=== PATIENT | female | born 1995 | race Two or more races ===

== ENCOUNTER 2017-09-20 18:21 | Emergency (ER) | payer SELFPAY, MEDICAID, OTHER | END 2017-09-20 19:25 | disposition left against medical advice (07) | LOC: ER 18:21 | DX: R10.9 Unspecified abdominal pain (principal); Z53.21 Procedure and treatment not carried out due to patient leaving prior to being seen by health care provider ==

== ENCOUNTER 2021-01-04 19:19 | Inpatient (IN) | payer SELFPAY ==
[~2021-01-04] VITALS: Ht 162.6 cm; Wt 56.2 kg
--- NOTE | 2021-01-04 19:54 | PHYS DOC ---
Past Medical History Past Medical History: STD Past Surgical History: No Surgical History Smoking Status: Light Tobacco Smoker Alcohol Use: Rarely Drug Use: Marijuana General Adult EDM: Chief Complaint: ABDOMINAL PAIN HPI: HPI: 25 yo F PMH ovarian cysts and anxiety, presents to the ED with her "step uncle," (patient consents to his/her/their knowledge and involvement in pts' medical care), with complaints of lower "pelvic" pain described as cramping that radiates to her upper abdomen. Reports she has had this type of pain for the past 6 to 7 years. Is unsure of her last menstrual period and is concerned she may be . Reports significant stress due to the recent loss of her mother to endometrial cancer. Per emr review, pt with h/o chlamydia. Pt later reported after test resulted positive, she's , h/o 2 miscarriages, no abortions. States she is not sexually active with her "uncle" and wishes him not to know she's . States she's been having a fever and back pain today. All sexual partners have been consensual. Review of Systems: Review of Systems: Constitutional: Denies fatigue or lack of taste/smell Eyes: Denies change in visual acuity. [] HENT: Denies nasal congestion or sore throat. [] Respiratory: Denies cough or shortness of breath. [] Cardiovascular: Denies chest pain or edema. [] GI: Denies nausea, vomiting, bloody stools or diarrhea. [] : Denies vaginal bleeding or hematuria Musculoskeletal: Denies midline back pain or joint pain. [] Integument: Denies rash or diaphoresis Neurologic: Denies headache, focal weakness or sensory changes. [] Endocrine: Denies polyuria or polydipsia. [] Lymphatic: Denies swollen glands. [] Psychiatric: Denies depression or anxiety. [] Heart Score: C/O Chest Pain: No Risk Factors: Risk Factors: DM, Current or recent (<one month) smoker, HTN, HLP, family history of CAD, obesity. Risk Scores: Score 0 - 3: 2.5% MACE over next 6 weeks - Discharge Home Score 4 - 6: 20.3% MACE over next 6 weeks - Admit for Clinical Observation Score 7 - 10: 72.7% MACE over next 6 weeks - Early Invasive Strategies Allergies: Allergies: Allergies Coded Allergies Type Severity Reaction Last Updated Verified No Known Drug Allergies 05/13/15 No Physical Exam: PE: Constitutional: Well developed, well nourished, no acute distress, non-toxic appearance. HENT: Normocephalic, atraumatic, Eyes: EOMI, conjunctiva normal, no discharge. Neck: Normal range of motion, supple, Cardiovascular: S1/2 present, tachycardic Lungs & Thorax: Speaking in full sentences, bilateral equal chest rise, no tachypnea or increased work of breathing Abdomen: soft, reports llq tenderness, no rigidity Skin: Warm, dry, no erythema, no rash. [] Back: no midline pain, reports bilateral flank pain Extremities: No tenderness, no cyanosis, no lower extremity edema Neurologic: Alert and oriented X 3, normal motor function, normal sensory function, no focal deficits noted. [] Psychologic: Affect normal, judgement normal, mood normal. [] Pelvic: Chaperoned by RN, external genitalia normal, no vaginal bleeding, nonmalodorous copious thick white discharge, cervical os closed, no cervical erythema, diffuse tenderness with palpation, no chandelier sign EKG: EKG: [] Radiology/Procedures: Radiology/Procedures: IMAGING REPORT Signed PATIENT: RAMAN CASTILLO ACCOUNT: [id number] : 1995 LOCATION: ER AGE: 25 SEX: F EXAM STATUS: REG ER ORD. PHYSICIAN: KAMILLA VO DO REASON: pelvic pain, +preg PROCEDURE: OB LIMITED EXAM: US OB Limited CLINICAL HISTORY: Reason: pelvic pain, +preg / Spl. Instructions: / History: . COMPARISON: None available. TECHNIQUE: Limited transabdominal ultrasound of the uterus was performed. FINDINGS: Within the uterus there is a single live intrauterine gestation with heart rate measured at 180 bpm. Fetus is in cephalic positioning. measurements as follows: BPD: 5.2 cm corresponding to 22 weeks 6 days Head circumference: 20.7 cm corresponding to 22 weeks 6 days Abdominal circumference: 17.3 cm corresponding to 22 weeks 2 days Femur length: 3.4 cm corresponding to 20 weeks 4 days Visualized structures are unremarkable. Placenta is anterior and appears normal. Cervix is not well visualized. Ovaries are not seen secondary to overlying gravid uterus. IMPRESSION: 1. Single live intrauterine gestation measuring 22 weeks 1 day by ultrasound, discordant with LMP. 2. Dedicated survey is recommended in the nonemergent setting. Electronically signed by: Jeannette Alfred MD (01/04/2021 9:44 PM) [facility] DICTATED and SIGNED BY: JEANNETTE ALFRED MD DATE: 01/04/21 [id number] 0 Course & Med Decision Making: Course & Med Decision Making Pertinent Labs and Imaging studies reviewed. (See chart for details) Concern for sepsis secondary to pyelonephritis with yeast infection and bacterial vaginosis. Normal IUP with no hypertension. Will admit for further medical management. Patient stable at time of admission agrees with this plan. I have spoken with the patient and/or caregivers. I have explained the patient's condition, diagnosis and treatment plan based on the information available to me at this time. I have answered the patient's and/or caregivers questions and answered any concerns. The patient and/or caregivers have as good an understanding of the patient's diagnosis, condition and treatment plan as c an be expected at this point. The patient has been stabilized within the capability of the emergency department. The patient will be transported for further care and management or will be moved to an observation or inpatient service. I have communicated with the staff or medical practitioner taking over this patient's care. Abraham Disclaimer: Abraham Disclaimer: This electronic medical record was generated, in whole or in part, using a voice recognition dictation system. Departure Departure Impression: Primary Impression: Sepsis Additional Impressions: Pyelonephritis Intrauterine Yeast infection Bacterial vaginosis Disposition: ADMITTED INPATIENT Admitting Physician: NADIRA (Dr. Horner) Condition: STABLE Referrals: UNKNOWN PCP NAME (PCP) KAMILLA VO DO Jan 04, 2021 19:54
[2021-01-04] MEDS ORDERED: IV NORMAL SALINE 1000ML BAG 1,000 ML IV SCH (20:00)
[2021-01-04 20:11] LABS: BASO % 0 % (0-3); EOS % 0 % (0-3); HEMATOCRIT 36.6 % (36.0-47.0); LYMPH # 0.6 x10^3/uL (1.0-4.8); LYMPH % 2 % (24-48); MEAN CORPUSCULAR HEMOGLOBIN 32 pg (25-35); MEAN CORPUSCULAR HGB CONC 36 g/dL (31-37); MEAN CORPUSCULAR VOLUME 90 fL (79-100); MONO # 1.1 x10^3/uL (0.0-1.1); MONO % 5 % (0-9); NEUT # 22.3 x10^3/uL (1.8-7.7); NEUT % 93 % (31-73); PLATELET COUNT 204 x10^3/uL (140-400); RED BLOOD COUNT 4.06 x10^6/uL (3.50-5.40); RED CELL DISTRIBUTION WIDTH 13.1 % (11.5-14.5)
[2021-01-04 20:14] LABS: BILIRUBIN,URINE NEGATIVE (NEG); CLARITY,URINE CLOUDY; COLOR,URINE YELLOW; NITRITE,URINE POSITIVE (NEG); PH,URINE 6.5 (<5.0-8.0); PROTEIN,URINE 100 mg/dL (NEG-TRACE); UROBILINOGEN,URINE 0.2 mg/dL (0.2 mg/dL)
[2021-01-04] MEDS ORDERED: ALPRAZolam 0.25 MG TABLET PO ONE (20:15)
[2021-01-04 20:21] LABS: BACTERIA,URINE MANY /HPF (0-FEW); WBC,URINE 20-40 /HPF (0-4)
[2021-01-04 20:23] LABS: BARBITURATES NEG (NEG); BENZODIAZEPINES POS (NEG); CANNABINOIDS POS (NEG); COCAINE NEG (NEG); METHADONE NEG (NEG); OPIATES NEG (NEG); PHENCYCLIDINE NEG (NEG)
[2021-01-04 20:27] LABS: AMPHETAMINE/METHAMPHETAMINE POS (NEG)
[2021-01-04 20:34] LABS: % BANDS 14 % (0-9); % LYMPHS 2 % (24-48); % MONOS 3 % (0-10); % SEGS 81 % (35-66); PLT ESTIMATE ADEQUATE (ADEQUATE)
[2021-01-04 20:35] LABS: CALCIUM 8.1 mg/dL (8.5-10.1); CREATININE 0.6 mg/dL (0.6-1.0); GFR 122.8; POTASSIUM 3.9 mmol/L (3.5-5.1)
[2021-01-04 20:43] LABS: ALBUMIN 2.5 g/dL (3.4-5.0); ALBUMIN/GLOBULIN RATIO 0.6 (1.0-1.7); TOTAL BILIRUBIN 0.7 mg/dL (0.2-1.0); TOTAL PROTEIN 6.9 g/dL (6.4-8.2)
--- NOTE | 2021-01-04 21:46 | RAD ---
EXAM: US OB Limited CLINICAL HISTORY: Reason: pelvic pain, +preg / Spl. Instructions: / History: . COMPARISON: None available. TECHNIQUE: Limited transabdominal ultrasound of the uterus was performed. FINDINGS: Within the uterus there is a single live intrauterine gestation with heart rate measured at 180 bpm. Fetus is in cephalic positioning. measurements as follows: BPD: 5.2 cm corresponding to 22 weeks 6 days Head circumference: 20.7 cm corresponding to 22 weeks 6 days Abdominal circumference: 17.3 cm corresponding to 22 weeks 2 days Femur length: 3.4 cm corresponding to 20 weeks 4 days Visualized structures are unremarkable. Placenta is anterior and appears normal. Cervix is not well visualized. Ovaries are not seen secondary to overlying gravid uterus. IMPRESSION: 1. Single live intrauterine gestation measuring 22 weeks 1 day by ultrasound, discordant with LMP. 2. Dedicated survey is recommended in the nonemergent setting. Electronically signed by: Jeannette Dee MD (01/04/2021 9:44 PM) [facility]TW[facility]
[2021-01-04] MEDS ORDERED: FLUCONAZOLE 100 MG TABLET. PO ONE (22:00)
[2021-01-04] MEDS ORDERED: cefTRIAXone IV Push 1 GM VIAL. IVP ONE (22:00)
[2021-01-04] MEDS ORDERED: IV NORMAL SALINE 1000ML BAG 1,000 ML IV ONE (22:00)
[2021-01-05] VITALS (7 sets, daily range): BP systolic 100–110; BP diastolic 45–64
--- NOTE | 2021-01-05 00:55 | NUR ---
The patient, RAMAN CASTILLO, 25 y/o, F admitted by RONNA VO MD, was given written information regarding hospital policies, unit procedures and contact persons. Valuables were checked and left with her.
[2021-01-05] MEDS ORDERED: ONDANSETRON PF 4 MG/2 ML VIAL. IVP PRN (02:00)
[2021-01-05] MEDS ORDERED: ACETAMINOPHEN 650 MG/20.3 ML SOLUTION. PEG PRN (02:00)
[2021-01-05] MEDS: ACETAMINOPHEN 325 MG TABLET. PO PRN ×2 (02:21→11:15)
--- NOTE | 2021-01-05 06:07 | NUR ---
Dr. Horner ordered COVID PCR due to elevated temp. of 101.5 orally, Patient refused to get swab stated, "I do not have COVID! I will leave this hospital before being swab! I watched my mom go thru that and I will not be swab! I'm sick with a high fever because of the !" This nurse explained to her that the fever could be related to the UTI, Pyelonephritis or COVID and Dr. Horner need to r/o COVID. Patient continues to refused, this nurse paged and spoke with Dr. Horner regarding Patient refusal, Dr. Horner will come this morning to educate her regarding her plan of care.
--- NOTE | 2021-01-05 07:32 | NUR ---
heart tones per [place] Doppler at 145-155.
[2021-01-05] MEDS: DOCUSATE SODIUM 100 MG CAPSULE. PO SCH ×2 (08:50→21:17)
[2021-01-05] MEDS: PRENATAL MULTIVITAMIN TABLET. PO SCH (08:50)
[2021-01-05] MEDS: PYRIDOXINE 50 MG TABLET. PO SCH (08:50)
--- NOTE | 2021-01-05 09:55 | PDOC2 ---
CONSULT Date of Consult Date of Consult DATE: 01/05/21 TIME: 09:54 Reason for Consult Reason for Consult: pyelo, History of Present Illness Reason for Visit: EDC: 05/09/21 LMP: couple of months ago 25y @ 22.2 by 22wk u/s admitted for pyelonephritis. The pt states 2 nights ago when she was with friends. She felt like she was about to blackout. She also states that she was experiencing hearing loss. She felt pain throughout her entire body. She was taking Xanax for the pain. She is unsure if she had any fevers, but was having chills over the last 2 days. She reports having darker urine, but denies any dysuria or frequency. In the ER the pt had labs drawn revealing a WBC of 24.0. Her UA also revealed large TRACEE and pos NIT. In the ER, an u/s was performed after her test returned pos. The u/s revealed a gestation of 22.1 wks. She was unaware she was and states that she did not think it was possible. She was told that she would have difficulty achieving , because she had a short tube in her body putting her at increased risk of UTIs. She does not have a PCP or a psychiatrist. She is unsure if she wants to have a baby with all that is going on in the world. Her mother in August with endometrial CA. PMH: Depression/Anxiety, Bipolar, ovarian cysts PSH: teeth Meds: none All: NKDA OBHx: SAB x 2 Inside Phone Sales: LMP a couple of wks ago Menarche 14yo, regular cycles SH: 1 PPD, no EtOH FH: CAD, CA Current Problem List Problem List Problems Medical Problems: (1) Bacterial vaginosis Status: Acute (2) Intrauterine Status: Acute (3) Pyelonephritis Status: Acute (4) Sepsis Status: Acute (5) Yeast infection Status: Acute Current Medications Current Medications Current Medications Sodium Chloride 1,000 ml @ 1,000 mls/hr Q1H IV Last administered on 01/04/21at 21:46; Start 01/04/21 at 20:00; Stop 01/04/21 at 20:59; Status DC Alprazolam (Xanax) 0.25 mg 1X ONCE PO Last administered on 01/04/21at 21:18; Start 01/04/21 at 20:15; Stop 01/04/21 at 20:16; Status DC Fluconazole (Diflucan) 200 mg 1X ONCE PO Last administered on 01/04/21at 21:47; Start 01/04/21 at 22:00; Stop 01/04/21 at 22:01; Status DC Ceftriaxone Sodium (Rocephin) 1 gm 1X ONCE IVP Last administered on 01/04/21at 21:44; Start 01/04/21 at 22:00; Stop 01/04/21 at 22:01; Status DC Sodium Chloride 1,000 ml @ 1,000 mls/hr 1X ONCE IV Last administered on 01/04/21at 22:00; Start 01/04/21 at 22:00; Stop 01/04/21 at 22:59; Status DC Metronidazole 100 ml @ 100 mls/hr 1X ONCE IV Last administered on 01/05/21at 00:51; Start 01/05/21 at 00:00; Stop 01/05/21 at 00:59; Status DC Acetaminophen (Tylenol) 650 mg PRN Q6HRS PRN PEG MILD PAIN / TEMP > 100.3'F; Start 01/05/21 at 02:00; Stop 01/05/21 at 02:14; Status DC Ondansetron HCl (Zofran) 4 mg PRN Q6HRS PRN IVP NAUSEA/VOMITING 1ST CHOICE; Start 01/05/21 at 02:00 Docusate Sodium (Colace) 100 mg BID PO Last administered on 01/05/21at 08:50; Start 01/05/21 at 09:00 Acetaminophen (Tylenol) 650 mg PRN Q6HRS PRN PO MILD PAIN / TEMP > 100.3'F Last administered on 01/05/21at 02:21; Start 01/05/21 at 02:15 Pyridoxine HCl (Vitamin B-6) 50 mg DAILY PO Last administered on 01/05/21at 08:50; Start 01/05/21 at 09:00 Multivit/ Folic Acid/Iron (Multivitamin ) 1 tab DAILY PO Last administered on 01/05/21at 08:50; Start 01/05/21 at 09:00 Psyllium Hydrophilic Mucilloid (Metamucil Fiber Packet) 1 pkt QHS PO ; Start 01/05/21 at 21:00 Ceftriaxone Sodium (Rocephin) 1 gm Q24H IVP ; Start 01/05/21 at 12:00 Metronidazole 100 ml @ 100 mls/hr Q8HRS IV Last administered on 01/05/21at 06:31; Start 01/05/21 at 06:00; Stop 01/06/21 at 14:59 Allergies Allergies: Coded Allergies: No Known Drug Allergies (Unverified , 05/13/15) Physical Exam Physical Exam CTAB Tachycardia S/NT/ND No C/C/E R>L CVA tenderness Vitals VITALS Vital Signs Date Time Temp Pulse Resp B/P (MAP) Pulse Ox O2 Delivery O2 Flow Rate FiO2 01/05/21 07:00 98.5 89 16 104/57 (73) 99 Room Air 98.5 Labs Labs Laboratory Tests Test 01/04/21 20:05 01/04/21 20:06 01/04/21 21:34 White Blood Count 24.0 x10^3/uL (4.0-11.0) Red Blood Count 4.06 x10^6/uL (3.50-5.40) Hemoglobin 13.0 g/dL (12.0-15.5) Hematocrit 36.6 % (36.0-47.0) Mean Corpuscular Volume 90 fL (79-100) Mean Corpuscular Hemoglobin 32 pg (25-35) Mean Corpuscular Hemoglobin Concent 36 g/dL (31-37) Red Cell Distribution Width 13.1 % (11.5-14.5) Platelet Count 204 x10^3/uL (140-400) Neutrophils (%) (Auto) 93 % (31-73) Lymphocytes (%) (Auto) 2 % (24-48) Monocytes (%) (Auto) 5 % (0-9) Eosinophils (%) (Auto) 0 % (0-3) Basophils (%) (Auto) 0 % (0-3) Neutrophils # (Auto) 22.3 x10^3/uL (1.8-7.7) Lymphocytes # (Auto) 0.6 x10^3/uL (1.0-4.8) Monocytes # (Auto) 1.1 x10^3/uL (0.0-1.1) Eosinophils # (Auto) 0.0 x10^3/uL (0.0-0.7) Basophils # (Auto) 0.0 x10^3/uL (0.0-0.2) Segmented Neutrophils % 81 % (35-66) Band Neutrophils % 14 % (0-9) Lymphocytes % 2 % (24-48) Monocytes % 3 % (0-10) Platelet Estimate Adequate (ADEQUATE) Urine Collection Type Unknown Urine Color Yellow Urine Clarity Cloudy Urine pH 6.5 (<5.0-8.0) Urine Specific Beecher 1.010 (1.000-1.030) Urine Protein 100 mg/dL (NEG-TRACE) Urine Glucose (UA) Negative mg/dL (NEG) Urine Ketones (Stick) 40 mg/dL (NEG) Urine Blood Small (NEG) Urine Nitrite Positive (NEG) Urine Bilirubin Negative (NEG) Urine Urobilinogen Dipstick 0.2 mg/dL (0.2 mg/dL) Urine Leukocyte Esterase Large (NEG) Urine RBC 3-5 /HPF (0-2) Urine WBC 20-40 /HPF (0-4) Urine Squamous Epithelial Cells Mod /LPF Urine Renal Epithelial Cells Occ /LPF Urine Bacteria Many /HPF (0-FEW) Urine Mucus Slight /LPF Maternal Serum HCG Beta Subunit 57959 mIU/mL (0-5) Sodium Level 128 mmol/L (136-145) Potassium Level 3.9 mmol/L (3.5-5.1) Chloride Level 97 mmol/L (98-107) Carbon Dioxide Level 21 mmol/L (21-32) Anion Gap 10 (6-14) Blood Urea Nitrogen 4 mg/dL (7-20) Creatinine 0.6 mg/dL (0.6-1.0) Estimated GFR (Cockcroft-Gault) 122.8 BUN/Creatinine Ratio 7 (6-20) Glucose Level 97 mg/dL (70-99) Calcium Level 8.1 mg/dL (8.5-10.1) Total Bilirubin 0.7 mg/dL (0.2-1.0) Aspartate Amino Transf (AST/SGOT) 39 U/L (15-37) Alanine Aminotransferase (ALT/SGPT) 20 U/L (14-59) Alkaline Phosphatase 102 U/L (46-116) Total Protein 6.9 g/dL (6.4-8.2) Albumin 2.5 g/dL (3.4-5.0) Albumin/Globulin Ratio 0.6 (1.0-1.7) Urine Opiates Screen Neg (NEG) Urine Methadone Screen Neg (NEG) Urine Barbiturates Neg (NEG) Urine Phencyclidine Screen Neg (NEG) Urine Amphetamine/Methamphetamine Pos (NEG) Urine Benzodiazepines Screen Pos (NEG) Urine Cocaine Screen Neg (NEG) Urine Cannabinoids Screen Pos (NEG) Urine Ethyl Alcohol Neg (NEG) Bedside Urine HCG, Qualitative Hcg positive (Negative) Lactic Acid Level 0.8 mmol/L (0.4-2.0) Laboratory Tests Test 01/04/21 20:05 01/04/21 20:06 01/04/21 21:34 White Blood Count 24.0 x10^3/uL (4.0-11.0) Red Blood Count 4.06 x10^6/uL (3.50-5.40) Hemoglobin 13.0 g/dL (12.0-15.5) Hematocrit 36.6 % (36.0-47.0) Mean Corpuscular Volume 90 fL (79-100) Mean Corpuscular Hemoglobin 32 pg (25-35) Mean Corpuscular Hemoglobin Concent 36 g/dL (31-37) Red Cell Distribution Width 13.1 % (11.5-14.5) Platelet Count 204 x10^3/uL (140-400) Neutrophils (%) (Auto) 93 % (31-73) Lymphocytes (%) (Auto) 2 % (24-48) Monocytes (%) (Auto) 5 % (0-9) Eosinophils (%) (Auto) 0 % (0-3) Basophils (%) (Auto) 0 % (0-3) Neutrophils # (Auto) 22.3 x10^3/uL (1.8-7.7) Lymphocytes # (Auto) 0.6 x10^3/uL (1.0-4.8) Monocytes # (Auto) 1.1 x10^3/uL (0.0-1.1) Eosinophils # (Auto) 0.0 x10^3/uL (0.0-0.7) Basophils # (Auto) 0.0 x10^3/uL (0.0-0.2) Segmented Neutrophils % 81 % (35-66) Band Neutrophils % 14 % (0-9) Lymphocytes % 2 % (24-48) Monocytes % 3 % (0-10) Platelet Estimate Adequate (ADEQUATE) Urine Collection Type Unknown Urine Color Yellow Urine Clarity Cloudy Urine pH 6.5 (<5.0-8.0) Urine Specific Beecher 1.010 (1.000-1.030) Urine Protein 100 mg/dL (NEG-TRACE) Urine Glucose (UA) Negative mg/dL (NEG) Urine Ketones (Stick) 40 mg/dL (NEG) Urine Blood Small (NEG) Urine Nitrite Positive (NEG) Urine Bilirubin Negative (NEG) Urine Urobilinogen Dipstick 0.2 mg/dL (0.2 mg/dL) Urine Leukocyte Esterase Large (NEG) Urine RBC 3-5 /HPF (0-2) Urine WBC 20-40 /HPF (0-4) Urine Squamous Epithelial Cells Mod /LPF Urine Renal Epithelial Cells Occ /LPF Urine Bacteria Many /HPF (0-FEW) Urine Mucus Slight /LPF Maternal Serum HCG Beta Subunit 88334 mIU/mL (0-5) Sodium Level 128 mmol/L (136-145) Potassium Level 3.9 mmol/L (3.5-5.1) Chloride Level 97 mmol/L (98-107) Carbon Dioxide Level 21 mmol/L (21-32) Anion Gap 10 (6-14) Blood Urea Nitrogen 4 mg/dL (7-20) Creatinine 0.6 mg/dL (0.6-1.0) Estimated GFR (Cockcroft-Gault) 122.8 BUN/Creatinine Ratio 7 (6-20) Glucose Level 97 mg/dL (70-99) Calcium Level 8.1 mg/dL (8.5-10.1) Total Bilirubin 0.7 mg/dL (0.2-1.0) Aspartate Amino Transf (AST/SGOT) 39 U/L (15-37) Alanine Aminotransferase (ALT/SGPT) 20 U/L (14-59) Alkaline Phosphatase 102 U/L (46-116) Total Protein 6.9 g/dL (6.4-8.2) Albumin 2.5 g/dL (3.4-5.0) Albumin/Globulin Ratio 0.6 (1.0-1.7) Urine Opiates Screen Neg (NEG) Urine Methadone Screen Neg (NEG) Urine Barbiturates Neg (NEG) Urine Phencyclidine Screen Neg (NEG) Urine Amphetamine/Methamphetamine Pos (NEG) Urine Benzodiazepines Screen Pos (NEG) Urine Cocaine Screen Neg (NEG) Urine Cannabinoids Screen Pos (NEG) Urine Ethyl Alcohol Neg (NEG) Bedside Urine HCG, Qualitative Hcg positive (Negative) Lactic Acid Level 0.8 mmol/L (0.4-2.0) Assessment/Plan Assessment/Plan Assessment: 25y @ 22.2 by 22wk u/s with pyelonephritis Recommendations: 1.) Right pyelonephritis WBC 24.0, awaiting UCx. Tm 101.5 (01/05 at 0055). On Rocephin. 2.) Vaginal d/c given Flagyl and Diflucan in the ER 3.) Bipolar, depression, and anxiety on no meds, is not seeing a psychiatrist 4.) UDS pos for meth, benzo, and cannab 5.) Hyponatremia per primary team 6.) H/o chl - Ct/gc pending 7.) Covid pending 8.) Tob use 9.) Will cont to follow TIM BARBOSA MD Jan 05, 2021 09:55
--- NOTE | 2021-01-05 10:43 | NUR ---
SW following. Discussed with RN, pt from home, room air, regular diet. Pt is 22 weeks and positive for Methamphetamine. PAT consulted for drug use. RN notified SW that pt reported she does not want this baby and does not want to be . Pt is past the legal date for [place] so is unable to have an . Linette (BITA) contacted [facility] (ph: [phone]) and requested [facility] visit with pt today to provide options for adoption once the baby is born. Brunilda will visit with pt at 1330. RN notified. Med Assist following for self pay status. SW will continue to follow. Addendum: 01/05/21 at 1616 by MILLA ALVAREZ Michael (ELVA) met with pt, pt has a hx of ADHA and depression, hasn't treated either one in about 7 years. Pt uses meth and weed daily, is addicted and finds it hard to stop. Pt provided with resources for [facility], [facility], , AA, [facility] and I. Pt aware of the consequences of using meth whilst and what this could mean for the baby. [facility] met with pt, pt isn't sure if she wants to put baby up for adoption or not since she didn't know she was until she came to the ER for abdominal pain. [facility] has a program that pt can utilize if she chooses. [facility] will follow up with patient tomorrow. RN notified.
[2021-01-05] MEDS: cefTRIAXone IV Push 1 GM VIAL. IVP SCH (11:15)
[2021-01-05] MEDS: IV NORMAL SALINE 1000ML BAG 1,000 ML IV SCH (11:15)
--- NOTE | 2021-01-05 11:22 | HP ---
DATE OF SERVICE: 01/05/2021 ADMIT DATE: 01/04/2021 CHIEF COMPLAINT: Abdominal pain. HISTORY OF PRESENT ILLNESS: The patient is a pleasant 25-year-old female who presented to the ER last night with abdominal pain. She came in by private vehicle with her uncle, complained of pelvic pain and cramping rated at 7/10. This has been intermittent and lasting for the last few days. She had recently lost her mother in August of this year, so she is under a lot of stress. Her mother had endometrial cancer. While in the ER, we checked labs and her test came back positive. She apparently is about 22 weeks . She also has methamphetamine in her urine as well as cannabinoids and benzos, and she admits to drug abuse. I discussed the case with ER physician. We are going to admit the patient and consult [facility]. It should also be noted that she has pyelonephritis with large amount of leukocyte esterase and 20-40 white cells in her urine. PAST MEDICAL HISTORY: Methamphetamine abuse, STDs, tobacco abuse, marijuana use, benzo abuse. ALLERGIES: None. FAMILY HISTORY: Diabetes. SOCIAL HISTORY: She drinks, smokes and takes drugs. MEDICATIONS: Reviewed. Please refer to the MRAD. REVIEW OF SYSTEMS: GENERAL: No history of weight change, weakness or fevers. SKIN: No bruising, hair changes or rashes. EYES: No blurred, double or loss of vision. NOSE AND THROAT: No history of nosebleeds, hoarseness or sore throat. HEART: No history of palpitations, chest pain or shortness of breath on exertion. LUNGS: Denies cough, hemoptysis, wheezing or shortness of breath. GASTROINTESTINAL: Denies changes in appetite, nausea, vomiting, diarrhea or constipation. GENITOURINARY: No history of frequency, urgency, hesitancy or nocturia. NEUROLOGIC: Denies history of numbness, tingling, tremor or weakness. PSYCHIATRIC: No history of panic, anxiety or depression. ENDOCRINE: No history of heat or cold intolerance, polyuria or polydipsia. EXTREMITIES: Denies muscle weakness, joint pain, pain on walking or stiffness. . PHYSICAL EXAMINATION: VITALS: Within normal limits and are stable. GENERAL: No apparent distress. Alert and oriented. HEENT: Normal cephalic atraumatic, external auditory canals are patent. EYES: Extraocular muscles are intact, pupils are equally round and reactive to light and accommodation. MUSCULOSKELETAL: Well developed, well nourished, good range of motion. ENDOCRINE: No thyromegaly was palpated. LYMPHATICS: No cervical chain or axillary nodes were noted. HEMATOPOIETIC: No bruising. NECK: Supple, no JVD, no thyromegaly was noted. LUNGS: Clear to auscultation in all lung rivers without rhonchi or wheezing. HEART: RRR, S1, S2 present. Peripheral pulses intact, no obvious murmurs were noted. ABDOMEN: Soft, nontender. Positive bowel sounds no organomegaly, normal bowel sounds. EXTREMITIES: Without any cyanosis, clubbing, or edema. Pedal pulses intact, Homans sign is negative. NEUROLOGIC: Normal speech, normal tone. A and O x 3, moves all extremities, no obvious focal deficits. PSYCHIATRIC: Normal affect, normal mood. Stable. SKIN: No ulcerations or rashes, good skin turgor, no jaundice. VASCULAR: Good capillary refill, neurovascular bundle appears to be intact. LABORATORY DATA: White count 24. Sodium is low at 128. AST slightly high at 39. Urinalysis, large amount of leukocyte esterase, 20-40 white blood cells. Drug screen positive for amphetamines, benzos [place] [address]. Ultrasound showed a single live intrauterine gestation, 22 weeks old. ASSESSMENT AND PLAN: Pyelonephritis, new diagnosis of 22-week , drug abuse, hyponatremia, leukocytosis. The patient has been admitted. We will start IV antibiotics. We have her on metronidazole. We consulted [facility]. IV FLUIDS, home meds. DVT prophylaxis. Full code. media services specialist for drug rehabilitation. ODALYS DR: JASMIN/preet TID: [id number]
[2021-01-05] MEDS: MORPHINE SULFATE 2 MG/ML INJ. IVP PRN (17:55)
[2021-01-05] MEDS: PSYLLIUM HUSK (SUGAR FREE) 1 PKT PACKET PO SCH (21:16)
[2021-01-06] MEDS: IV NORMAL SALINE 1000ML BAG 1,000 ML IV SCH ×2 (00:29→18:05)
[2021-01-06 03:00] VITALS: BP 102/54
[2021-01-06] MEDS: ACETAMINOPHEN 325 MG TABLET. PO PRN ×2 (05:12→12:48)
[2021-01-06 07:00] VITALS: BP 90/49
[2021-01-06] MEDS: PYRIDOXINE 50 MG TABLET. PO SCH (09:00)
[2021-01-06] MEDS: DOCUSATE SODIUM 100 MG CAPSULE. PO SCH ×2 (09:00→21:05)
[2021-01-06] MEDS: PRENATAL MULTIVITAMIN TABLET. PO SCH (09:00)
--- NOTE | 2021-01-06 09:13 | PDOC ---
POLICE LIAISON OFFICER PROGRESS NOTE Date of Service: DATE: 01/06/21 TIME: 09:11 Subjective: Pt feels better. Wonders when she can go home. Objective: Vital Signs: Vital Signs Date Time Temp Pulse Resp B/P (MAP) Pulse Ox O2 Delivery O2 Flow Rate FiO2 01/05/21 07:00 98.5 89 16 104/57 (73) 99 Room Air 98.5 Vital Signs Date Time Temp Pulse Resp B/P (MAP) Pulse Ox O2 Delivery O2 Flow Rate FiO2 01/06/21 07:00 97.5 76 17 90/49 (63) 98 Room Air 97.5 Physical Exam: GENERAL: No apparent distress. Alert and oriented. HEENT: Head normocephalic, atraumatic. NECK: Supple LUNGS: Clear to auscultation. HEART: RRR, S1, S2 present, pulses intact ABDOMEN: Soft, positive bowel sounds. EXTREMITIES: No cyanosis or edema. NEUROLOGIC: Normal speech, normal tone PSYCHIATRIC: Normal affect, normal mood. SKIN: No ulceration. right CVA tenderness Assessment & Plan: A/P 25y @ 22.2 by 22wk u/s with pyelonephritis 1.) Right pyelonephritis repeat CBC pending, awaiting UCx. AF over last 24hrs. On Rocephin. Explained to patient that we would switch to a PO antibiotic once the Ucx returns. She will be able to be d/c after she is able to abiodun that med. 2.) Vaginal d/c s/p Diflucan. Will switch Flagyl PO 3.) Bipolar, depression, and anxiety on no meds, is not seeing a psychiatrist 4.) UDS pos for meth, benzo, and cannab 5.) Hyponatremia per primary team, repeat BMP pending 6.) H/o chl - Ct/gc pending 7.) Covid pending 8.) Tob use 9.) Will cont to follow TIM BRABOSA MD Jan 06, 2021 09:13
--- NOTE | 2021-01-06 10:33 | NUR ---
Patient refusing laboratory mechanic helper to draw blood.
[2021-01-06 11:00] VITALS: BP 89/53
[2021-01-06] MEDS: cefTRIAXone IV Push 1 GM VIAL. IVP SCH (11:31)
--- NOTE | 2021-01-06 11:32 | PDOC ---
[employer] PROGRESS NOTE Date of Service DOS: DATE: 01/06/21 TIME: 11:32 Chief Complaint Chief Complaint Pyelonephritis Newly discovered 22-week Bipolar Hyponatremia Methamphetamine abuse, STDs, tobacco abuse, marijuana use, benzo abuse. History of Present Illness History of Present Illness 01/06/2021 Patient seen and examined She is resting with no apparent distress Vital signs stable Discussed with RN Discussed with case management Chart reviewed Appreciate [employer]OR[employer] COACH input Vitals/I&O Vitals/I&O: Vital Signs Date Time Temp Pulse Resp B/P (MAP) Pulse Ox O2 Delivery O2 Flow Rate FiO2 01/06/21 08:30 Room Air 01/06/21 07:00 97.5 76 17 90/49 (63) 98 97.5 I & O 01/05/21 01/05/21 01/06/21 15:00 23:00 07:00 Intake Total 340 ml 1000 ml 1100 ml Balance 340 ml 1000 ml 1100 ml Physical Exam General: No acute distress Heart: Regular rate Lungs: Clear Abdomen: Normal bowel sounds Extremities: No clubbing Skin: No rashes Assessment and Plan Assessmemt and Plan Problems Medical Problems: (1) Bacterial vaginosis Status: Acute (2) Intrauterine Status: Acute (3) Pyelonephritis Status: Acute (4) Sepsis Status: Acute (5) Yeast infection Status: Acu Pyelonephritis Newly discovered 22-week Bipolar Hyponatremia Methamphetamine abuse, STDs, tobacco abuse, marijuana use, benzo abuse. Plan IV antibiotics IV fluids We consulted social security assessor Home meds DVT prophylaxis Full code Trend labs Per [employer]OR[employer] COACH's recommendations please see the following and we certainly agree and appreciate Dr. Gannon's assistance; A/P 25y @ 22.2 by 22wk u/s with pyelonephritis 1.) Right pyelonephritis repeat CBC pending, awaiting UCx. AF over last 24hrs. On Rocephin. Explained to patient that we would switch to a PO antibiotic once the Ucx returns. She will be able to be d/c after she is able to abiodun that med. 2.) Vaginal d/c s/p Diflucan. Will switch Flagyl PO 3.) Bipolar, depression, and anxiety on no meds, is not seeing a psychiatrist 4.) UDS pos for meth, benzo, and cannab 5.) Hyponatremia per primary team, repeat BMP pending 6.) H/o chl - Ct/gc pending 7.) Covid pending 8.) Tob use 9.) Will cont to follow Comment Review of Relevant I have reviewed the following items asuncion (where applicable) has been applied. Medications: Current Medications Medications (Trade) Dose Ordered Sig/Pat Route PRN Reason Start Time Stop Time Status Last Admin Dose Admin Psyllium Hydrophilic Mucilloid (Metamucil Fiber Packet) 1 pkt QHS PO 01/05/21 21:00 01/05/21 21:16 Ceftriaxone Sodium (Rocephin) 1 gm Q24H IVP 01/05/21 12:00 01/05/21 11:15 Morphine Sulfate (Morphine Sulfate) 2 mg PRN Q2HR PRN IVP PAIN 01/05/21 18:00 01/05/21 17:55 Justifications for Admission Other Justification HALI KAUR III DO Jan 06, 2021 11:32
[2021-01-06] MEDS: MORPHINE SULFATE 2 MG/ML INJ. IVP PRN ×3 (12:48→21:13)
[2021-01-06 15:00] VITALS: BP 92/49
[2021-01-06 18:19] LABS: GC PROBE Negative (Negative)
[2021-01-06 19:00] VITALS: BP 102/53
[2021-01-06] MEDS: metroNIDAZOLE 500 MG TABLET PO SCH (21:05)
[2021-01-06] MEDS: PSYLLIUM HUSK (SUGAR FREE) 1 PKT PACKET PO SCH ×2 (21:05→21:11)
[2021-01-06 23:00] VITALS: BP 99/53
[2021-01-07 03:00] VITALS: BP 102/56
[2021-01-07] MEDS: IV NORMAL SALINE 1000ML BAG 1,000 ML IV SCH (03:09)
[2021-01-07] MEDS: MORPHINE SULFATE 2 MG/ML INJ. IVP PRN (03:10)
[2021-01-07 07:00] VITALS: BP 97/52
[2021-01-07] MEDS: DOCUSATE SODIUM 100 MG CAPSULE. PO SCH (08:46)
[2021-01-07] MEDS: metroNIDAZOLE 500 MG TABLET PO SCH (08:49)
[2021-01-07] MEDS: PRENATAL MULTIVITAMIN TABLET. PO SCH (08:51)
[2021-01-07] MEDS: PYRIDOXINE 50 MG TABLET. PO SCH (08:57)
[2021-01-07] MEDS ORDERED: CEFDINIR 300 MG CAPSULE PO SCH (09:00)
[2021-01-07] MEDS ORDERED: AMOXICILLIN/K CLAV 875/125MG TABLET. PO SCH (09:00)
[2021-01-07] MEDS ORDERED: AMOX1TAB61 PO (10:29)
[2021-01-07] MEDS ORDERED: METR-34 PO (10:33)
--- NOTE | 2021-01-07 10:43 | PDOC3 ---
Discharge Summary Visit Information Date of Admission: Jan 04, 2021 Date of Discharge: Jan 07, 2021 Admitting Diagnosis Comment: Pyelonephritis, new diagnosis of 22-week , drug abuse, hyponatremia, leukocytosis. Final Diagnosis Problems Medical Problems: (1) Bacterial vaginosis Status: Acute (2) Intrauterine Status: Acute (3) Pyelonephritis Status: Acute (4) Sepsis Status: Acute (5) Bipolar Hyponatremia Methamphetamine abuse, STDs, tobacco abuse, marijuana use, benzo abuse. Brief Hospital Course Allergies Allergies Coded Allergies Type Severity Reaction Last Updated Verified No Known Drug Allergies 05/13/15 No Vital Signs Vital Signs Date Time Temp Pulse Resp B/P (MAP) Pulse Ox O2 Delivery O2 Flow Rate FiO2 01/07/21 07:00 98.0 80 16 97/52 (67) 100 98.0 01/07/21 03:00 Room Air Brief Hospital Course HISTORY OF PRESENT ILLNESS: The patient is a pleasant 25-year-old female who presented to the ER last night with abdominal pain. She came in by private vehicle with her uncle, complained of pelvic pain and cramping rated at 7/10. This has been intermittent and lasting for the last few days. She had recently lost her mother in August of this year, so she is under a lot of stress. Her mother had endometrial cancer. While in the ER, we checked labs and her test came back positive. She apparently is about 22 weeks . She also has methamphetamine in her urine as well as cannabinoids and benzos, and she admits to drug abuse. I discussed the case with ER physician. We are going to admit the patient and consult BATCH STILL OPERATOR. It should also be noted that she has pyelonephritis with large amount of leukocyte esterase and 20-40 white cells in her urine. Patient got started on broad spectrum antibiotics, she was seen in consultation by OB with the recommendations to transition to oral antibiotics based on culture which was lee sensitive. She tolerated the Flagyl prescribed by our data governance consultant well and she was hemodynamically stable and in good spirits to be going home, she refused her Covid testing, recommendations regarding symptoms associated with the disease were given to the patient. Signs and symptoms of concerns and when to seek medical attention were explained as well. She was encouraged to stop illegal drug use and also the importance of establishing care with OB moving forward. She has been staying with her uncle who will be coming later to pick her up. no concerns voiced during my visit. Discharge Information Condition at Discharge: Improved Follow Up: Weeks (OB and primary care physician) Disposition/Orders: D/C to Home Scheduled Amoxicillin/Potassium Clav (Augmentin 875-125 Tablet) 1 Each Tablet, 1 TAB PO BID for pyelonephritis for 7 Days, #14 Ref 0 Prescribed by: BRANDT ELLIOTT MD on 01/07/21 1029 Justicifation of Admission Dx: Justifications for Admission: Justification of Admission Dx: Yes (Pyelonephritis) BRANDT ELLIOTT MD Jan 07, 2021 10:43
--- NOTE | 2021-01-07 10:46 | PDOC ---
COMPUTER SCIENCES PROFESSOR PROGRESS NOTE Date of Service: DATE: 01/07/21 TIME: 10:45 Subjective: Pt feeling better. Was considering leaving AMA. Pt would really like to go today. Objective: Vital Signs: Vital Signs Date Time Temp Pulse Resp B/P (MAP) Pulse Ox O2 Delivery O2 Flow Rate FiO2 01/06/21 07:00 97.5 76 17 90/49 (63) 98 Room Air 97.5 Vital Signs Date Time Temp Pulse Resp B/P (MAP) Pulse Ox O2 Delivery O2 Flow Rate FiO2 01/07/21 07:00 98.0 80 16 97/52 (67) 100 98.0 01/07/21 03:00 Room Air Physical Exam: GENERAL: No apparent distress. Alert and oriented. HEENT: Head normocephalic, atraumatic. NECK: Supple LUNGS: Clear to auscultation. HEART: RRR, S1, S2 present, pulses intact ABDOMEN: Soft, positive bowel sounds. EXTREMITIES: No cyanosis or edema. NEUROLOGIC: Normal speech, normal tone PSYCHIATRIC: Normal affect, normal mood. SKIN: No ulceration. Assessment & Plan: A/P 25y @ 22.4 by 22wk u/s with pyelonephritis 1.) Right pyelonephritis refused repeat CBC. UCx E. Coli. AF over last 48hrs. Switched to Augmentin. Can d/c home or watch over the night. Cont tx for 10-14 days. She follow up in my office in 1 wk. 2.) Vaginal d/c s/p Diflucan. On PO Flagyl. 3.) Bipolar, depression, and anxiety on no meds, is not seeing a psychiatrist 4.) UDS pos for meth, benzo, and cannab 5.) Hyponatremia per primary team, refused repeat BMP 6.) H/o chl - Ct/gc neg/neg 7.) Covid pending 8.) Tob use 9.) Will cont to follow TIM BARBOSA MD Jan 07, 2021 10:46
[2021-01-07 11:00] VITALS: BP 100/59
--- NOTE | 2021-01-07 14:01 | NUR ---
SW following. Discussed with RN, discharge order for home with self care. SW spoke with [facility], they attempted to visit with pt again yesterday, however pt reported she was too tired and wasn't feeling very well. [facility] does have the patient's contact information and will follow up with the patient after discharge. SW made hotline report for drug use whilst , intake ID #[id number]. Pt reported to an RN that she may give her baby to her aunt, or go find a back alley . Med Assist was unable to screen pt for Medicaid due to pt being "unavailable" and not taking Med Assist calls. Pt is a high risk readmission.
== END 2021-01-07 11:25 | disposition home or self-care (01) | DRG 831 ==
LOC: ER 19:19 → 5 NORTH 20:38
PROVIDERS: ADMIT Internal Medicine; ATTEND Internal Medicine
DX: O98.812 Other maternal infectious and parasitic diseases complicating pregnancy, second trimester (principal); A41.9 Sepsis, unspecified organism; E87.1 Hypo-osmolality and hyponatremia; O99.322 Drug use complicating pregnancy, second trimester; O23.02 Infections of kidney in pregnancy, second trimester; B37.9 Candidiasis, unspecified; F12.90 Cannabis use, unspecified, uncomplicated; F13.10 Sedative, hypnotic or anxiolytic abuse, uncomplicated; F15.10 Other stimulant abuse, uncomplicated; F31.9 Bipolar disorder, unspecified; Z80.49 Family history of malignant neoplasm of other genital organs; Z72.0 Tobacco use; Z3A.22 22 weeks gestation of pregnancy; Z32.01 Encounter for pregnancy test, result positive; O99.342 Other mental disorders complicating pregnancy, second trimester; Z82.49 Family history of ischemic heart disease and other diseases of the circulatory system; Z83.3 Family history of diabetes mellitus; O99.282 Endocrine, nutritional and metabolic diseases complicating pregnancy, second trimester; F41.9 Anxiety disorder, unspecified; Z20.822 Contact with and (suspected) exposure to COVID-19; B96.20 Unspecified Escherichia coli [E. coli] as the cause of diseases classified elsewhere
CPT/HCPCS: 36415; 76815; 80053; 80307; 81001; 81025; 83605; 84702; 85007; 85025; 87040; 87077; 87086; 87186; 87491; 87591; J0696; J2270; J3490; J7030; Q0111; 99285-25; G0378